=== PATIENT | male | born 1960 | race Caucasian/White ===

== ENCOUNTER 2016-07-12 05:38 | Day surgery (SDC) | payer MEDICAID ==
[2016-07-11 11:12] LABS: HEMATOCRIT 43.8 % (42.0-54.0); HEMOGLOBIN 14.4 g/dL (13.5-17.5); MCH 29.6 pg (26.0-34.0); MCHC 32.9 g/dL (31.0-37.0); MCV 90.1 fL (80.0-100.0); MEAN PLATELET VOLUME 10.1 fL (7.4-10.4); RBC 4.86 10x6/uL (4.20-6.10); RDW 13.5 % (11.5-14.5); WBC 5.6 10x3/uL (4.8-10.8)
[~2016-07-12] VITALS: Ht 185.4 cm; Wt 133.8 kg
[~2016-07-12 05:38] MED LIST: GEMFIBROZIL600 MG PO; MOBIC7.5 MG PO; NORVASC2.5 MG PO; PAXIL20 MG PO; PLAVIX75 MG PO; PRAVASTATIN SOD10 MG PO; SYNTHROID150 MCG PO
[2016-07-12 07:42] VITALS: BP 147/90; Ht 185.4 cm; Wt 133.8 kg
[2016-07-12] MEDS ORDERED: HYDROCODONE-APA1 TAB PO (09:17)
--- NOTE | 2016-07-12 11:07 | NUR ---
1045 IV DC WITH CATHER TIP INTACT
--- NOTE | 2016-07-16 17:08 | OP ---
PATIENT NAME: NEEMA MONTES MEDICAL RECORD: [id number] :58 LOCATION:[facility] ADMISSION DATE: SURGEON: MICHELLE NAVARRETE MD DATE OF OPERATION: 07/12/2016 PREOPERATIVE DIAGNOSIS: Medial meniscus tear of the left knee. POSTOPERATIVE DIAGNOSIS: Medial meniscus tear of the left knee and lateral meniscus tear. PROCEDURE: 1. Arthroscopic partial medial meniscectomy. 2. Arthroscopic partial lateral meniscectomy. SURGEON: Michelle Navarrete MD ANESTHESIA: General. INTRAOPERATIVE COMPLICATIONS: None. SUMMARY OF PATHOLOGIC FINDINGS: The patient had a complex tear of the posterior horn of medial meniscus. Also, the patient had a radial oblique tear of the lateral meniscus. OPERATIVE SUMMARY IN DETAIL: After obtaining the appropriate preoperative orthopedic surgery consent as well as anesthetic consultation, evaluation and clearance, the patient was taken to the operating room and placed on the operating table in supine position. After adequate general laryngeal mask was administered, tourniquet was placed about the proximal aspect of left lower extremity. Left lower extremity was then prepped and draped in routine sterile fashion. The leg was elevated and exsanguinated, tourniquet inflated to 350 mmHg. Routine inferolateral portal was established followed by superomedial portal and inferomedial portal. Diagnostic arthroscopy did reveal the above findings. Attention was first turned to the medial side. A 3.5 full radius resector in conjunction with a meniscotome were utilized to debride the medial meniscus back to stable meniscal elements. The knee was then placed in the [id number] position and the radial oblique tear was debrided as well using a resector. 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 The knee was insufflated with 80 mg Depo-Medrol and 30 cc of 0.25% Marcaine with epinephrine. Arthroscopy portals were closed in routine interrupted fashion using 4-0 Prolene. Sterile dressings were applied. The patient was awakened, taken to recovery room in stable condition. All final needle and sponge counts were correct. TRANSINT:[id number] Voice Confirmation ID: [id number] DOCUMENT ID: [id number] MICHELLE NAVARRETE MD at 1708 CC: [id number] DICTATION DATE: 07/12/16918 PHOTOVOLTAIC TESTING TECHNICIAN: 07/12/16 09 [facility] 07/12/16 [facility] [address] [place] [address]
== END 2016-07-12 11:11 | disposition home or self-care (01) ==
LOC: D.OPS 05:38 → D.PAN 08:30 → D.OPS 09:30 → D.PAN 09:30 → D.OPS 11:11
PROVIDERS: Anesthesiology
DX: S83.232A Complex tear of medial meniscus, current injury, left knee, initial encounter (principal); S83.282A Other tear of lateral meniscus, current injury, left knee, initial encounter